=== PATIENT | female | born 1965 | race African-American/Black ===

== ENCOUNTER 2019-05-12 10:43 | Emergency (ER) | payer MEDICAID ==
[~2019-05-12] VITALS: Ht 167.6 cm; Wt 99.9 kg
[2019-05-12 11:32] VITALS: BP 145/93
[2019-05-12 12:16] LABS: BASOPHILS % 0.8 % (0.0-2.0); EOSINOPHILS % 0.9 % (0.0-5.0); HEMATOCRIT. 39.7 % (36.0-48.0); HEMOGLOBIN. 13.1 g/dL (12.0-16.0); LYMPHOCYTES % 27.1 % (20.0-50.0); MEAN CORPUSCULAR HEMOGLOBIN 27.2 pg (28.0-32.0); MEAN CORPUSCULAR VOLUME 82.8 fL (81.0-99.0); MEAN PLATELET VOLUME 8.5 fl (7.4-10.4); MONOCYTES % 6.8 % (2.0-8.0); NEUTROPHILS % 64.4 % (40.0-76.0); PLATELET 221 x1000/uL (130-400); RED BLOOD CELL COUNT 4.79 mill/uL (4.2-5.4)
[2019-05-12 12:18] LABS: CHLORIDE 102 mEq/L (98-107)
[2019-05-12] MEDS ORDERED: ACYCLOVIR 400 MG TABLET PO ONE (12:45)
[2019-05-12] MEDS ORDERED: PREDNISONE 20MG TABLET PO ONE (12:45)
== END 2019-05-12 13:40 | disposition home or self-care (01) ==
LOC: ER 10:43
DX: G51.0 Bell's palsy (principal); I10 Essential (primary) hypertension; E11.9 Type 2 diabetes mellitus without complications
CPT/HCPCS: 36415; 80053; 85025; 93005; 99285